=== PATIENT | female | born 1945 ===

== ENCOUNTER → 2022-12-24 | Outpatient (CLI) | payer OTHER ==
[2022-12-24 08:33] LABS: Basophils # (auto) 0 10 ^3/uL (0-0.2); Basophils % (auto) 0.6 % (0.0-2.0); Eosinophils # (auto) 0.1 10 ^3/uL (0-0.8); Eosinophils % (auto) 1.3 % (0.0-7.0); Hemoglobin 12.1 g/dL (12.2-16.2); Lymphocytes % (auto) 33.5 % (10.0-50.0); Mean Corpuscular Hemoglobin 32.2 pg (28.0-32.0); Mean Corpuscular Hgb Conc. 32.8 g/dL (32.0-36.0); Mean Corpuscular Volume 98.1 fL (80.0-100.0); Monocytes # (auto) 0.4 10 ^3/uL (0-1.3); Monocytes % (auto) 6.1 % (0.0-12.0); Neutrophils # (auto) 3.6 10 ^3/uL (1.6-8.6); Neutrophils % (auto) 58.5 % (37.0-80.0); Nucleated Red Blood Cells % 0.1 %; Red Blood Cells 3.77 10^6/uL (4.0-5.20); White Blood Cell 6.1 10^3/uL (4.4-10.8)
[2022-12-24 08:59] LABS: Albumin 4.2 g/dL (3.4-5.0); Calcium 10.3 mg/dL (8.5-10.1); Potassium 4.2 mmol/L (3.5-5.1)
[2022-12-24 09:05] LABS: BUN/Creatinine Ratio 16.2 (10.0-20.0); Bilirubin, Total 0.4 mg/dL (0.2-1.0); CRP High Sensitivity 0.09 mg/dL (< 0.3); Total Protein 7.4 g/dL (6.4-8.2)
[2022-12-24 09:10] LABS: Free T4 (Free Thyroxine) 1.15 ng/dL (0.89-1.76)
== END | disposition home or self-care (01) ==
LOC: LAB 08:14
PROVIDERS: ATTEND Internal Medicine
DX: R74.8 Abnormal levels of other serum enzymes (principal); M06.09 Rheumatoid arthritis without rheumatoid factor, multiple sites; Z79.899 Other long term (current) drug therapy
CPT/HCPCS: 36415; 80053; 80061; 82306; 82607; 84439; 84443; 85025; 85652; 86141

== ENCOUNTER → 2023-04-17 | Outpatient (CLI) | payer OTHER ==
[2023-04-17 11:20] LABS: Basophils # (auto) 0 10 ^3/uL (0-0.2); Basophils % (auto) 0.6 % (0.0-2.0); Eosinophils # (auto) 0.1 10 ^3/uL (0-0.8); Hematocrit 35.1 % (36.0-46.0); Hemoglobin 11.8 g/dL (12.2-16.2); Lymphocytes # (auto) 2.9 10 ^3/uL (0.4-5.4); Lymphocytes % (auto) 43.4 % (10.0-50.0); Mean Corpuscular Hemoglobin 33.1 pg (28.0-32.0); Mean Corpuscular Hgb Conc. 33.7 g/dL (32.0-36.0); Mean Corpuscular Volume 98.2 fL (80.0-100.0); Monocytes # (auto) 0.6 10 ^3/uL (0-1.3); Monocytes % (auto) 8.5 % (0.0-12.0); Neutrophils # (auto) 3.1 10 ^3/uL (1.6-8.6); Neutrophils % (auto) 45.5 % (37.0-80.0); Nucleated Red Blood Cells % 0.1 %; Red Blood Cells 3.57 10^6/uL (4.0-5.20); Red Cell Distribution Width 14.6 % (11.8-14.3); White Blood Cell 6.8 10^3/uL (4.4-10.8)
[2023-04-17 11:58] LABS: Alanine Aminotransferase 17 U/L (7-40); Albumin 4.3 g/dL (3.2-4.8); Alkaline Phosphatase 69 U/L (46-116); Aspartate Aminotransferase 18 U/L (13-40); BUN/Creatinine Ratio 11.9 (10.0-20.0); Bilirubin, Total 0.4 mg/dL (0.2-1.0); Blood Urea Nitrogen 12 mg/dL (9-23); CRP High Sensitivity 0.26 mg/dL (<1.0); Calcium 10.6 mg/dL (8.5-10.1); Carbon Dioxide 26 mmol/L (20-30); Glucose 98 mg/dL (74-106); Total Protein 7.1 g/dL (5.7-8.2)
[2023-04-17 12:26] LABS: Anion Gap 5 (5-15); Chloride 109 mmol/L (98-107); Potassium 4.3 mmol/L (3.5-5.1); Sodium 140 mmol/L (136-145)
== END | disposition home or self-care (01) ==
LOC: LAB 10:52
PROVIDERS: ATTEND Internal Medicine Rheumatology
DX: M06.9 Rheumatoid arthritis, unspecified (principal); E55.9 Vitamin D deficiency, unspecified; Z79.899 Other long term (current) drug therapy
CPT/HCPCS: 36415; 80053; 82306; 85025; 86141